=== PATIENT | female | born 1975 | race Caucasian/White ===

== ENCOUNTER 2022-12-09 21:36 | Emergency (ER) | payer OTHER ==
[2022-12-09 21:42] VITALS: BP 162/82; PULSE 100; RESP 20; TEMP 98.4; BMI 30.1
== END 2022-12-10 00:23 | disposition home or self-care (01) ==
LOC: JER 21:36
DX: S80.02XA Contusion of left knee, initial encounter (principal); M17.12 Unilateral primary osteoarthritis, left knee; W18.49XA Other slipping, tripping and stumbling without falling, initial encounter; Y93.64 Activity, baseball
CPT/HCPCS: 73562-TC-LT-FY; 99283-25

== ENCOUNTER → 2024-03-26 | Day surgery (SDC) | payer OTHER | END | disposition home or self-care (01) | LOC: JRADUS-SUR 07:37 | PROVIDERS: ATTEND Family Medicine | PROC: 0H9U3ZX Drainage of Left Breast, Percutaneous Approach, Diagnostic (ICD-10-PCS; principal; 2024-03-26) | DX: N60.12 Diffuse cystic mastopathy of left breast (principal) | CPT/HCPCS: 19083; 77065-TC; 87899; 88305-TC; 88312-TC; 88342-TC; A4648 ==